=== PATIENT | male | born 1995 | race Caucasian/White ===

== ENCOUNTER → 2017-01-09 | Outpatient (CLI) | payer OTHER ==
[~2017-01-09] MED LIST: GADAVIST IV PRN
--- NOTE | 2017-01-09 17:02 | DIAGNOSTIC IMAGING REPORT ---
Brain and internal auditory canal MRI WITH AND WITHOUT CONTRAST HISTORY: Bilateral sensorineural hearing loss H90.42 TECHNIQUE: Multiplanar multisequence MRI of the brain was performed both before and after the intravenous administration of contrast. COMPARISON STUDY: None. FINDINGS: There are no areas of restricted diffusion to suggest acute infarction. The midline structures are intact. The paranasal sinuses are clear. The mastoid air cells are clear. The ventricles and sulci are within normal limits for age. There is no mass, hematoma, midline shift. The major vascular flow-voids at the skull base are well maintained. Postcontrast sequences show no areas of abnormal enhancement. No masses or abnormal enhancement within the internal auditory canals. The 7th and 8th cranial nerves are normal in course and caliber. No evidence for inner ear dysplasia. IMPRESSION: Normal brain and internal auditory canal MRI. Electronically signed by: Sin Erazo M.D. 01/09/2017 5:01 PM Dictated Date/Time: 01/09/2017 4:53 PM
== END | disposition home or self-care (01) ==
LOC: C.MRI 15:55
PROVIDERS: ATTEND Physician Assistant
DX: H90.42 Sensorineural hearing loss, unilateral, left ear, with unrestricted hearing on the contralateral side (principal)